=== PATIENT | female | born 1995 | race Caucasian/White ===

== ENCOUNTER 2017-02-12 17:26 | Emergency (ER) | payer OTHER ==
[~2017-02-12] VITALS: Ht 157.5 cm; Wt 77.0 kg
[2017-02-12 17:27] VITALS: BP 162/95; PULSE 94; RESP 20; TEMP 99.4; O2SAT 100
[2017-02-12] MEDS ORDERED: SODIUM CHLOR 0.9% 1000 ML INJ 1,000 ML IV SCH (18:01)
[2017-02-12 18:08] VITALS: RESP 18; O2SAT 99
[2017-02-12] MEDS ORDERED: ONDANSETRON HCL 4 MG/2 ML VIAL IVP ONE (18:15)
[2017-02-12] MEDS ORDERED: SODIUM CHLORIDE 0.9% FLUSH 10 ML FLUSH IV FLUSH PRN (18:15)
[2017-02-12 18:39] LABS: AUTOMATED NEUTROPHIL # 9.3 TH/MM3 (1.8-7.7); BASOPHIL # 0.1 TH/MM3 (0-0.2); BASOPHIL % 0.5 % (0.0-2.0); EOSINOPHIL # 0.1 TH/MM3 (0-0.4); EOSINOPHIL % 0.8 % (0.0-4.0); HEMATOCRIT 41.9 % (35.0-46.0); HEMO FLAGS DIFF FINAL; LYMPH % 25.2 % (9.0-44.0); LYMPHOCYTE # 3.5 TH/MM3 (1.0-4.8); MEAN CELL VOLUME 82.8 FL (80.0-100.0); MEAN CORPUSCULAR HEMOGLOBIN 27.7 PG (27.0-34.0); MEAN CORPUSCULAR HGB CONC 33.4 % (32.0-36.0); MONO % 6.5 % (0.0-8.0); PLATELET COUNT 272 TH/MM3 (150-450); RED BLOOD COUNT 5.06 MIL/MM3 (4.00-5.30); RED CELL DISTRIBUTION WIDTH 13.7 % (11.6-17.2); WHITE BLOOD COUNT 13.9 TH/MM3 (4.0-11.0)
[2017-02-12 18:57] VITALS: BP 136/80; PULSE 82; RESP 18; O2SAT 100
[2017-02-12 19:01] LABS: ANION GAP 8 MEQ/L (5-15); AST (GOT) 36 U/L (15-37); BICARBONATE 27.9 MEQ/L (21.0-32.0); BLOOD UREA NITROGEN 13 MG/DL (7-18); CHLORIDE 102 MEQ/L (98-107); GLOMERULAR FILTRATION RATE 81 ML/MIN (>89); POTASSIUM 3.6 MEQ/L (3.5-5.1); SODIUM (NA) 138 MEQ/L (136-145)
[2017-02-12 19:05] LABS: ALKALINE PHOSPHATASE 73 U/L (45-117); ALT (GPT) 52 U/L (10-53); TOTAL BILIRUBIN ADULT 0.4 MG/DL (0.2-1.0)
--- NOTE | 2017-02-12 19:05 | PD ---
HPI Chief Complaint: Abdominal Pain Time Seen by Provider: 18:00 Travel History International Travel<30 days: No Contact w/Intl Traveler<30days: No Traveled to known affect area: No History of Present Illness HPI 21 year old female presents to the ED for evaluation on one weeks history abdominal bloat, small volume stools. The patient endorses mild nausea. She states that she has had a low appetite 2/2 bloating. States that she drinks "a lot" of water and walks 2 miles at lunch daily. She denies vomiting, pencil thin stools, melena, hematochezia. States her last bowel movement was today, well-formed, "small amount." She endorses passing gas. LMP 01/28. Patient states that she stopped taking OC last month. She took a stool softener before todays BM with no improvement of her symptoms. She denies opioid use. PFSH Past Medical History Asthma: Yes Diabetes: No Tetanus Vaccination: > 5 Years Influenza Vaccination: No ?: Unknown LMP: JANUARY 28 NO LONGER TAKING CONTOLL Past Surgical History Surgical History: No Previous Surgery Social History Alcohol Use: Yes (OCCAS) Tobacco Use: No Substance Use: No Allergies-Medications (Allergen,Severity, Reaction): Coded Allergies: Augmentin (Verified Allergy, Mild, NAUSEA, 02/12/17) Reported Meds & Prescriptions Reported Meds & Active Scripts Active Magnesium Citrate Liq (Magnesium Citrate) 300 Ml Liq 300 Ml PO ONCE Physical Exam Narrative GENERAL: Well-nourished, well-developed nontoxic appearing white female in no acute distress. SKIN: Focused skin assessment warm/dry. HEAD: Normocephalic. EYES: No scleral icterus. No injection or drainage. NECK: Supple, trachea midline. No JVD or lymphadenopathy. CARDIOVASCULAR: Regular rate and rhythm without murmurs, gallops, or rubs. RESPIRATORY: Breath sounds clear and equal bilaterally. No accessory muscle use. GASTROINTESTINAL: Abdomen soft, non-tender, nondistended. No pubic tenderness. No hepatosplenomegaly. Active bowel sounds. MUSCULOSKELETAL: No cyanosis, or edema. Patient is ambulatory and moves the extremities spontaneously. BACK: Nontender without obvious deformity. No CVA tenderness. Data Data Last Documented VS Vital Signs Date Time Temp Pulse Resp B/P Pulse Ox O2 Delivery O2 Flow Rate FiO2 02/12/17 18:57 82 18 136/80 100 Room Air 02/12/17 17:27 99.4 Orders Complete Blood Count With Diff (02/12/17 18:01) Comprehensive Metabolic Panel (02/12/17 18:01) Urinalysis - C+S If Indicated (02/12/17 18:01) Iv Access Insert/Monitor (02/12/17 18:01) Ecg Monitoring (02/12/17 18:) Oximetry (02/12/17 18:01) Ondansetron Inj (Zofran Inj) (02/12/17 18:15) Sodium Chlor 0.9% 1000 Ml Inj (Ns 1000 M (02/12/17 18:01) Sodium Chloride 0.9% Flush (Ns Flush) (02/12/17 18:15) Ed Urine Pregnancytest Poc (02/12/17 18:01) Abdomen, Upright Only (02/12/17 19:13) Labs Laboratory Tests Test 02/12/17 02/12/17 18:05 19:56 White Blood Count 13.9 TH/MM3 Red Blood Count 5.06 MIL/MM3 Hemoglobin 14.0 GM/DL Hematocrit 41.9 % Mean Corpuscular Volume 82.8 FL Mean Corpuscular Hemoglobin 27.7 PG Mean Corpuscular Hemoglobin 33.4 % Concent Red Cell Distribution Width 13.7 % Platelet Count 272 TH/MM3 Mean Platelet Volume 8.6 FL Neutrophils (%) (Auto) 67.0 % Lymphocytes (%) (Auto) 25.2 % Monocytes (%) (Auto) 6.5 % Eosinophils (%) (Auto) 0.8 % Basophils (%) (Auto) 0.5 % Neutrophils # (Auto) 9.3 TH/MM3 Lymphocytes # (Auto) 3.5 TH/MM3 Monocytes # (Auto) 0.9 TH/MM3 Eosinophils # (Auto) 0.1 TH/MM3 Basophils # (Auto) 0.1 TH/MM3 CBC Comment DIFF FINAL Differential Comment Sodium Level 138 MEQ/L Potassium Level 3.6 MEQ/L Chloride Level 102 MEQ/L Carbon Dioxide Level 27.9 MEQ/L Anion Gap 8 MEQ/L Blood Urea Nitrogen 13 MG/DL Creatinine 0.87 MG/DL Estimat Glomerular Filtration 81 ML/MIN Rate Random Glucose 87 MG/DL Calcium Level 9.0 MG/DL Total Bilirubin 0.4 MG/DL Aspartate Amino Transf 36 U/L (AST/SGOT) Alanine Aminotransferase 52 U/L (ALT/SGPT) Alkaline Phosphatase 73 U/L Total Protein 7.6 GM/DL Albumin 3.9 GM/DL Urine Color YELLOW Urine Turbidity CLEAR Urine pH 5.5 Urine Specific [place] 1.023 Urine Protein NEG mg/dL Urine Glucose (UA) NEG mg/dL Urine Ketones NEG mg/dL Urine Occult Blood SMALL Urine Nitrite NEG Urine Bilirubin NEG Urine Urobilinogen LESS THAN 2.0 MG/DL Urine Leukocyte Esterase NEG Urine RBC 1 /hpf Urine WBC LESS THAN 1 /hpf Urine Squamous Epithelial 1 /hpf Cells Urine Mucus FEW /lpf Microscopic Urinalysis Comment CULT NOT INDICATED MDM Medical Decision Making Medical Screen Exam Complete: Yes Emergency Medical Condition: Yes Differential Diagnosis versus constipation versus UTI versus ileus versus bowel obstruction versus other Narrative Course 21 year old female presents to the ED for evaluation on one weeks history abdominal bloat, small volume stools. The patient endorses mild nausea. She states that she has had a low appetite 2/2 bloating. States that she drinks "a lot" of water and walks 2 miles at lunch daily. She denies vomiting, pencil thin stools, melena, hematochezia. States her last bowel movement was today, well-formed, "small amount." Endorses passing gas. LMP 01/28. Patient states that she stopped taking OC last month. She took a stool softener before today' s BM with no improvement of her symptoms. She denies opioid use. Vitals reviewed. Physical exam reveals a nontoxic appearing obese white female in no acute distress. Abdominal exam is reassuring. Patient was placed on continuous monitoring and IV was established. She was administered 1 L normal saline bolus and 4 mg Zofran. CBC: unremarkable. CMP: unremarkable UA: No culture indicated Urine test: Negative. Abdominal x-ray: Normal for patient of this age per radiology review. I discussed the results of the workup with the patient. She was particularly interested in her urine result. I prescribed a dose of mag citrate. I warned the patient that this treatment can work rather quickly. She is instructed take medication as prescribed, follow up with primary care provider, return for worsening of symptoms. She indicated understanding of the instructions and is agreeable with the care plan. She is stable and discharged home. I discussed the results of the workup with the patient. I suspect this is constipation. The patient is instructed to increase her fiber intake, fluid intake and activity level. She was provided a prescription for a single dose of Mag citrate, take as directed, follow up with the PCP. She indicated understanding of the instructions and is amenable to the care plan. She is stable and discharged home. Diagnosis Primary Impression: Constipation Qualified Code: K59.00 - Constipation, unspecified constipation type Additional Impression: Bloating Referrals: Primary Care Physician Patient Instructions: Constipation (ED), General Instructions Additional Instructions: Hydrate. Stay active. Increase your fiber intake to 28 grams daily. Take mag citrate as directed. Follow up with the primary care provider. Return to the ED for any urgent or emergent medical condition. Med/Other Pt SpecificInfo: Prescription(s) given Scripts Magnesium Citrate Liq 300 Ml Seq929 Ml PO ONCE #1 BOTTLE Ref 0 Prov:Mert Aleman MD 02/12/17 Disposition: 01 DISCHARGE HOME Condition: Stable Darlin Garcia February 12, 2017 19:05
[2017-02-12] MEDS ORDERED: MAGNSOL2 PO (19:50)
--- NOTE | 2017-02-12 20:29 | RADRPT ---
EXAM DATE/TIME: 02/12/2017 19:59 [facility] COMPARISON: No previous studies available for comparison. INDICATIONS : Constipation MEDICAL HISTORY : None. SURGICAL HISTORY : None. ENCOUNTER: Initial ACUITY: 1 week PAIN SCORE: 4/10 LOCATION: Bilateral abdomen FINDINGS: A single erect view of the abdomen demonstrates the lower lungs to be clear. No evidence of free int raperitoneal gas. The visualized bowel loops are unremarkable. CONCLUSION: Normal examination for a patient of this age. Mario Cutler MD on February 12, 2017 at 20:27 Board Certified Radiologist. This report was verified electronically.
[2017-02-12 20:33] LABS: BLOOD, URINE SMALL (NEG); GLUCOSE,URINE NEG (NEG); KETONE, URINE NEG (NEG); MUCUS URINE FEW /lpf (OCC); NITRITE,URINE NEG (NEG); PH, URINE 5.5 (5.0-8.5); SQUAMOUS EPITHELIAL CELL URINE 1 /hpf (0-5); URINE COLOR YELLOW (YELLW/STRAW)
[2017-02-12 20:34] LABS: COMMENT (UR) CULT NOT INDICATED; CULTURE IF INDICATED CULT NOT INDICATED
== END 2017-02-12 21:10 | disposition home or self-care (01) ==
LOC: NEPD 17:26
DX: K59.00 Constipation, unspecified (principal)
CPT/HCPCS: 74000; 80053; 81001; 84703; 85025; 96374; 99284; J2405; J7030

== ENCOUNTER 2017-03-14 21:24 | Emergency (ER) | payer OTHER ==
[~2017-03-14] VITALS: Ht 157.5 cm; Wt 82.0 kg
[~2017-03-14 21:24] MED LIST: MAGNSOL2 PO
[2017-03-14 21:25] VITALS: BP 170/61; PULSE 63; RESP 16; TEMP 98.9; O2SAT 100
[2017-03-14] MEDS ORDERED: SODIUM CHLOR 0.9% 1000 ML INJ 1,000 ML IV SCH (21:57)
[2017-03-14] MEDS ORDERED: MORPHINE SULFATE 4 MG/ML INJ IV PUSH ONE (22:00)
[2017-03-14] MEDS ORDERED: ONDANSETRON HCL 4 MG/2 ML VIAL IVP ONE (22:00)
[2017-03-14] MEDS ORDERED: SODIUM CHLORIDE 0.9% FLUSH 10 ML FLUSH IV FLUSH PRN (22:00)
[2017-03-14] MEDS ORDERED: CLON1 PO (22:30)
[2017-03-14 22:37] LABS: AUTOMATED NEUTROPHIL # 8.5 TH/MM3 (1.8-7.7); BASOPHIL # 0.1 TH/MM3 (0-0.2); BASOPHIL % 0.5 % (0.0-2.0); EOSINOPHIL # 0.1 TH/MM3 (0-0.4); EOSINOPHIL % 0.8 % (0.0-4.0); HEMATOCRIT 40.8 % (35.0-46.0); HEMO FLAGS DIFF FINAL; LYMPH % 29.4 % (9.0-44.0); MEAN CORPUSCULAR HGB CONC 33.7 % (32.0-36.0); MONO % 6.5 % (0.0-8.0); NEUT % 62.8 % (16.0-70.0); PLATELET COUNT 267 TH/MM3 (150-450); RED BLOOD COUNT 4.92 MIL/MM3 (4.00-5.30); RED CELL DISTRIBUTION WIDTH 13.6 % (11.6-17.2); WHITE BLOOD COUNT 13.6 TH/MM3 (4.0-11.0)
[2017-03-14 22:42] LABS: BLOOD, URINE SMALL (NEG); COMMENT (UR) CULT NOT INDICATED; CULTURE IF INDICATED CULT NOT INDICATED; GLUCOSE,URINE NEG (NEG); KETONE, URINE 10 mg/dL (NEG); MUCUS URINE FEW /lpf (OCC); NITRITE,URINE NEG (NEG); PH, URINE 5.5 (5.0-8.5); SQUAMOUS EPITHELIAL CELL URINE 3 /hpf (0-5); URINE COLOR YELLOW (YELLW/STRAW)
[2017-03-14 22:50] LABS: APTT (PATIENT) 30.3 SEC (24.3-30.1); PROTHROMBIN TIME - PATIENT 10.7 SEC (9.8-11.6)
[2017-03-14 23:03] LABS: BICARBONATE 29.3 MEQ/L (21.0-32.0); POTASSIUM 3.6 MEQ/L (3.5-5.1)
[2017-03-14 23:05] LABS: INDIRECT BILIRUBIN 0.3 MG/DL (0.0-0.8); TOTAL BILIRUBIN ADULT 0.4 MG/DL (0.2-1.0)
[2017-03-14] MEDS ORDERED: IOHEXOL 350 MG/ML 10 ML VIAL (for RAD DIAG) IV ONE (23:19)
--- NOTE | 2017-03-14 23:20 | RADRPT ---
EXAM DATE/TIME: 03/14/2017 22:47 [facility] COMPARISON: No previous studies available for comparison. INDICATIONS : Right lower quadrant pain. IV CONTRAST: 97 cc Omnipaque 350 (iohexol) IV ORAL CONTRAST: No oral contrast ingested. RADIATION DOSE: 11.71 CTDIvol (mGy) MEDICAL HISTORY : Asthma. SURGICAL HISTORY : None. ENCOUNTER: Initial ACUITY: 1 day PAIN SCALE: 7/10 LOCATION: Right lower quadrant TECHNIQUE: Volumetric scanning of the abdomen and pelvis was performed. Using automated exposure control and ad justment of the mA and/or kV according to patient size, radiation dose was kept as low as reasonably achievable to obtain optimal diagnostic quality images. FINDINGS: LOWER LUNGS: The visualized lower lungs are clear. LIVER: Homogeneous density without lesion. There is no dilation of the biliary tree. No calcified gallston es. SPLEEN: Normal size without lesion. PANCREAS: Within normal limits. KIDNEYS: Normal in size and shape. There is no mass, stone or hydronephrosis. ADRENAL GLANDS: Within normal limits. VASCULAR: There is no aortic aneurysm. BOWEL/MESENTERY: The stomach, small bowel, and colon demonstrate no acute abnormality. There is no free intraperitone al air or fluid. The appendix is normal ABDOMINAL WALL: Within normal limits. RETROPERITONEUM: There is no lymphadenopathy. BLADDER: No wall thickening or mass. REPRODUCTIVE: Within normal limits. Free fluid in the pelvis within normal limits INGUINAL: There is no lymphadenopathy or hernia. MUSCULOSKELETAL: Within normal limits for patient age. CONCLUSION: Normal examination. Fredi Escalante MD on March 14, 2017 at 23:17 Board Certified Radiologist. This report was verified electronically.
[2017-03-14] MEDS ORDERED: ONDANSETRON HCL 4 MG/2 ML VIAL IV PUSH ONE (23:45)
[2017-03-15] MEDS ORDERED: METR-1 PO (00:27)
[2017-03-15] MEDS ORDERED: ZOFR4TAB3 SL (00:27)
--- NOTE | 2017-03-15 00:27 | PD ---
HPI Chief Complaint: Abdominal Pain Time Seen by Provider: 21:50 Travel History International Travel<30 days: No Contact w/Intl Traveler<30days: No Traveled to known affect area: No History of Present Illness HPI Patient is a 21-year-old female who comes in from urgent care due to abdominal pain with nausea and vomiting. She says she has had nausea and vomiting for the past 2 weeks. She says that she developed pain in her abdomen the past 3 or 4 days. She denies fever or chills. She says she has been having issues with constipation. She did take magnesium citrate and had a normal bowel movement afterwards. She denies any dysuria. She says she has had some vaginal discharge. [facility] Past Medical History Asthma: Yes Anxiety: Yes Diabetes: No ?: Not Past Surgical History Other Surgery: Yes (wisdom teeth removed) Social History Alcohol Use: Yes (OCCAS) Tobacco Use: No Substance Use: No Allergies-Medications (Allergen,Severity, Reaction): Coded Allergies: Augmentin (Verified Allergy, Mild, NAUSEA, 03/14/17) Reported Meds & Prescriptions Reported Meds & Active Scripts Active Reported Klonopin (Clonazepam) 1 Mg Tab 1 Mg PO TID Review of Systems Except as stated in HPI: all other systems reviewed are Neg General / Constitutional: No: Fever, Chills HENT: No: Headaches, Lightheadedness Cardiovascular: No: Chest Pain or Discomfort Respiratory: No: Shortness of Breath Gastrointestinal: Positive: Nausea, Vomiting, Abdominal Pain, Constipation Genitourinary: Positive: Discharge, No: Dysuria Skin: No Rash, No Change in Pigmentation Neurologic: No: Weakness, Dizziness Physical Exam Narrative GENERAL: Awake and alert, in no acute distress. SKIN: Focused skin assessment warm/dry. HEAD: Atraumatic. Normocephalic. EYES: Pupils equal and round. No scleral icterus. ENT: Mucous membranes pink and moist. NECK: Trachea midline. No JVD. CARDIOVASCULAR: Regular rate and rhythm. No murmur appreciated. RESPIRATORY: No accessory muscle use. Clear to auscultation. Breath sounds equal bilaterally. GASTROINTESTINAL: Abdomen soft, nondistended. Tender to palpation of the right side of the abdomen. No rebound or guarding. : Performed in the presence of female nurse. Clear discharge from the os. No cervical lesions. No CMT. Minimal right sided adnexal tenderness. MUSCULOSKELETAL: No obvious deformities. No clubbing. No cyanosis. No edema. NEUROLOGICAL: Awake and alert. No obvious cranial nerve deficits. Motor grossly within normal limits. Normal speech. PSYCHIATRIC: Appropriate mood and affect; insight and judgment normal. Data Data Last Documented VS Vital Signs Date Time Temp Pulse Resp B/P Pulse Ox O2 Delivery O2 Flow Rate FiO2 03/14/17 21:25 98.9 63 16 170/61 100 Orders Basic Metabolic Panel (Bmp) (03/14/17 21:57) Complete Blood Count With Diff (03/14/17 21:57) Lipase (03/14/17 21:57) Lactic Acid (03/14/17 21:57) Prothrombin Time / Inr (Pt) (03/14/17 21:57) Act Partial Throm Time (Ptt) (03/14/17 21:57) Urinalysis - C+S If Indicated (03/14/17 21:57) Ua Includes Microscopic (03/14/17 21:57) Ct Abd/Pel W Iv Contrast(Rout) (03/14/17 21:57) Iv Access Insert/Monitor (03/14/17 21:57) Ecg Monitoring (03/14/17 21:57) Oximetry (03/14/17 21:57) Morphine Inj (Morphine Inj) (03/14/17 22:00) Ondansetron Inj (Zofran Inj) (03/14/17 22:00) Sodium Chlor 0.9% 1000 Ml Inj (Ns 1000 M (03/14/17 21:57) Sodium Chloride 0.9% Flush (Ns Flush) (03/14/17 22:00) Ed Urine Pregnancytest Poc (03/14/17 21:57) Hepatic Functional Panel (03/14/17 21:57) Iohexol 350 Inj (Omnipaque 350 Inj) (03/14/17 23:19) Ondansetron Inj (Zofran Inj) (03/14/17 23:45) Wet Prep Profile (03/14/17 23:58) Gc And Chlamydia Pcr (03/14/17 23:58) Labs Laboratory Tests Test 03/14/17 03/14/17 22:10 22:20 Urine Color YELLOW Urine Turbidity CLEAR Urine pH 5.5 Urine Specific [place] 1.022 Urine Protein TRACE mg/dL Urine Glucose (UA) NEG mg/dL Urine Ketones 10 mg/dL Urine Occult Blood SMALL Urine Nitrite NEG Urine Bilirubin NEG Urine Urobilinogen LESS THAN 2.0 MG/DL Urine Leukocyte Esterase NEG Urine RBC 4 /hpf Urine WBC 2 /hpf Urine Squamous Epithelial 3 /hpf Cells Urine Mucus FEW /lpf Microscopic Urinalysis Comment CULT NOT INDICATED White Blood Count 13.6 TH/MM3 Red Blood Count 4.92 MIL/MM3 Hemoglobin 13.8 GM/DL Hematocrit 40.8 % Mean Corpuscular Volume 83.0 FL Mean Corpuscular Hemoglobin 28.0 PG Mean Corpuscular Hemoglobin 33.7 % Concent Red Cell Distribution Width 13.6 % Platelet Count 267 TH/MM3 Mean Platelet Volume 8.4 FL Neutrophils (%) (Auto) 62.8 % Lymphocytes (%) (Auto) 29.4 % Monocytes (%) (Auto) 6.5 % Eosinophils (%) (Auto) 0.8 % Basophils (%) (Auto) 0.5 % Neutrophils # (Auto) 8.5 TH/MM3 Lymphocytes # (Auto) 4.0 TH/MM3 Monocytes # (Auto) 0.9 TH/MM3 Eosinophils # (Auto) 0.1 TH/MM3 Basophils # (Auto) 0.1 TH/MM3 CBC Comment DIFF FINAL Differential Comment Prothrombin Time 10.7 SEC Prothromb Time International 1.0 RATIO Ratio Activated Partial 30.3 SEC Thromboplast Time Sodium Level 138 MEQ/L Potassium Level 3.6 MEQ/L Chloride Level 104 MEQ/L Carbon Dioxide Level 29.3 MEQ/L Anion Gap 5 MEQ/L Blood Urea Nitrogen 9 MG/DL Creatinine 0.90 MG/DL Estimat Glomerular Filtration 78 ML/MIN Rate Random Glucose 86 MG/DL Lactic Acid Level 1.0 mmol/L Calcium Level 8.7 MG/DL Total Bilirubin 0.4 MG/DL Direct Bilirubin 0.1 MG/DL Indirect Bilirubin 0.3 MG/DL Aspartate Amino Transf 51 U/L (AST/SGOT) Alanine Aminotransferase 78 U/L (ALT/SGPT) Alkaline Phosphatase 66 U/L Total Protein 7.5 GM/DL Albumin 3.8 GM/DL Lipase 121 U/L [facility] Medical Decision Making Medical Screen Exam Complete: Yes Emergency Medical Condition: Yes Medical Record Reviewed: Yes Differential Diagnosis Appendicitis versus cholecystitis versus pancreatitis versus gastroenteritis versus versus UTI versus pyelonephritis Narrative Course Patient is a 21-year-old female who comes in complaining of abdominal pain with nausea and vomiting. Exam shows tenderness to the right side of the abdomen. IV established, labs sent. Labs showed elevated white blood cell count of 13.6. Other labs are within normal limits. Except for slight bump in AST and ALT. CT of the abdomen and pelvis performed shows no acute abnormalities. Last 24 hours Impressions Abdomen/Pelvis CT 03/14/17 [id number] Signed Impressions: Service Date/Time: Tuesday, March 14, 2017 22:47 - CONCLUSION: Normal examination. Fredi Escalante MD Wet prep sent shows clue cells. Will be treated with Flagyl. Will be discharged with prescription for Flagyl and Zofran. Patient advised to follow- up with her primary doctor as well as gastroenterology. Advised to drink plenty of fluids and eat bland foods. Advised to return to the ED as needed for any worsening symptoms. Diagnosis Primary Impression: Nausea and vomiting Qualified Code: R11.2 - Non-intractable vomiting with nausea, unspecified vomiting type Additional Impression: Bacterial vaginosis Patient Instructions: Acute Nausea and Vomiting (ED), Bacterial Vaginosis (ED) , General Instructions Additional Instructions: Take Zofran as needed for nausea. Take all of your antibiotic. Do not drink alcohol while taking the antibiotic as you will become very sick. Follow up with a primary care physician and Gastroenterology. Return to the ED as needed for any worsening symptoms. Scripts Metronidazole (Flagyl)500 Mg Bxt515 Mg PO BID 7 Days Ref 0 Prov:Fadia Hollis MD 03/15/17 Ondansetron Odt (Zofran Odt)4 Mg Tab4 Mg SL Q6HR PRN (Nausea/Vomiting) #12 TAB Ref 0 Prov:Fadia Hollis MD 03/15/17 Disposition: DISCHARGE HOME Condition: Stable Fadia Hollis MD Mar 15, 2017 00:27
[2017-03-15 01:54] LABS: CHLAMYDIA PCR DETECTED (NOT DETECT); NEISSERIA PCR NOT DETECTED (NOT DETECT)
[2017-03-15] MEDS ORDERED: ALBUAER3 INH (20:50)
[2017-03-15] MEDS ORDERED: VALT1TAB PO (21:02)
[2017-03-15] MEDS ORDERED: PRED1TAB72 SL (21:02)
== END 2017-03-15 01:15 | disposition home or self-care (01) ==
LOC: NEPD 21:24
DX: R11.2 Nausea with vomiting, unspecified (principal); N76.0 Acute vaginitis
CPT/HCPCS: 74177; 80048; 80076; 81001; 83605; 83690; 84703; 85025; 85610; 85730; 87210; 87491; 87591; 96361; 96374; 96375; 96376; 99285; J2270; J2405; J7030; Q9967

== ENCOUNTER 2017-03-15 20:33 | Emergency (ER) | payer OTHER ==
[~2017-03-15] VITALS: Ht 162.6 cm; Wt 82.6 kg
[~2017-03-15 20:33] MED LIST changes: +CLON1 PO; -MAGNSOL2 PO; +METR-1 PO; +ZOFR4TAB3 SL
[2017-03-15 20:38] VITALS: BP 180/92; PULSE 108; RESP 20; O2SAT 100
[2017-03-15 20:43] VITALS: BP 143/90; PULSE 85; RESP 18; TEMP 98.6; O2SAT 100
[2017-03-15] MEDS ORDERED: ALBUAER3 INH (20:50)
[2017-03-15 20:56] VITALS: RESP 18; O2SAT 100
[2017-03-15] MEDS ORDERED: valACYclovir HCL 500 MG TAB PO ONE (21:00)
[2017-03-15] MEDS ORDERED: SODIUM CHLOR 0.9% 1000 ML INJ 1,000 ML IV SCH (21:00)
[2017-03-15] MEDS ORDERED: methylPREDNISolone SOD SUCC 40 MG/1 ML VIAL IV PUSH ONE (21:00)
[2017-03-15] MEDS ORDERED: VALT1TAB PO (21:02)
[2017-03-15] MEDS ORDERED: PRED1TAB72 SL (21:02)
[2017-03-15 21:15] LABS: AUTOMATED NEUTROPHIL # 7.5 TH/MM3 (1.8-7.7); BASOPHIL # 0.1 TH/MM3 (0-0.2); BASOPHIL % 0.6 % (0.0-2.0); EOSINOPHIL # 0.2 TH/MM3 (0-0.4); EOSINOPHIL % 1.2 % (0.0-4.0); HEMO FLAGS DIFF FINAL; LYMPH % 30.9 % (9.0-44.0); LYMPHOCYTE # 3.9 TH/MM3 (1.0-4.8); MEAN CORPUSCULAR HEMOGLOBIN 27.5 PG (27.0-34.0); MEAN CORPUSCULAR HGB CONC 32.8 % (32.0-36.0); NEUT % 59.3 % (16.0-70.0); PLATELET COUNT 313 TH/MM3 (150-450); RED BLOOD COUNT 5.24 MIL/MM3 (4.00-5.30); RED CELL DISTRIBUTION WIDTH 13.7 % (11.6-17.2); WHITE BLOOD COUNT 12.7 TH/MM3 (4.0-11.0)
--- NOTE | 2017-03-15 21:29 | RADRPT ---
EXAM DATE/TIME: 03/15/2017 21:12 [facility] COMPARISON: No previous studies available for comparison. INDICATIONS : Right sided facial numbness. RADIATION DOSE: 56.77 CTDIvol (mGy) MEDICAL HISTORY : None SURGICAL HISTORY : None. ENCOUNTER: Initial ACUITY: 2 days PAIN SCALE: 0/10 LOCATION: cranial TECHNIQUE: Multiple contiguous axial images were obtained of the head. Using automated exposure control and adj ustment of the mA and/or kV according to patient size, radiation dose was kept as low as reasonably a chievable to obtain optimal diagnostic quality images. FINDINGS: CEREBRUM: The ventricles are normal for age. No evidence of midline shift, mass lesion, hemorrhage or acute in farction. No extra-axial fluid collections are seen. POSTERIOR FOSSA: The cerebellum and brainstem are intact. The 4th ventricle is midline. The cerebellopontine angle i s unremarkable. EXTRACRANIAL: The visualized portion of the orbits is intact. SKULL: The calvaria is intact. No evidence of skull fracture. CONCLUSION: Normal examination. Alexx Louie MD on March 15, 2017 at 21:26 Board Certified Radiologist. This report was verified electronically.
[2017-03-15 21:31] LABS: PROTHROMBIN TIME - PATIENT 10.6 SEC (9.8-11.6)
--- NOTE | 2017-03-15 21:32 | PD ---
HPI Chief Complaint: Neuro Symptoms/ Deficits Time Seen by Provider: 20:50 Travel History International Travel<30 days: No Contact w/Intl Traveler<30days: No Traveled to known affect area: No History of Present Illness HPI The patient is a 21 year old female who presents to the [facility] emergency department with a history of yesterday noticing in the morning when she brushed her teeth that she had numbness to her tongue and then later in the day she noticed a lack of taste with eating. The patient reports that today while eating dinner at approximate 7:30 PM she then noticed that she is having difficulty chewing and difficulty smiling on the right side of her face. She asked her boyfriend if he noticed any problems when she tried to smile and he did notice some asymmetry, therefore the patient came into the emergency department for evaluation and treatment. The patient was brought back immediately for evaluation. The patient has no numbness or tingling to her arms or legs. She denies having any weakness of arms or legs. She denies having any headache. The patient denies having any neck pain. The patient does incidentally report that she was seen in the emergency department yesterday evening after being referred from an urgent care center for possible appendicitis. The patient reports to me that she's had abdominal pain is waxed and waned in severity for the last month although over the last 3-4 days it has become much worse. The pain is across the lower aspect of the abdomen. She reports that she's had nausea and vomiting with any attempts at eating for the last 2 weeks. She reports that previously she was also constipated, however now she has begun to move her bowels more regularly. She had a bowel movement earlier today. The patient underwent evaluation including a CT scan of the abdomen and pelvis that was unremarkable. The patient was diagnosed with bacterial vaginosis and was given a prescription for Flagyl and Zofran. The patient denies any recent fevers, rash, eye pain, cough, congestion, neck pain, chest pain, shortness of breath, abdominal pain, vomiting, diarrhea, urinary symptoms, or other neurologic symptoms. LMP: At the end of February. [facility] [place] Past Medical History Narrative Medical The patient's past medical history is significant for asthma, anxiety disorder. Asthma: Yes Anxiety: Yes Diabetes: No Diminished Hearing: No Tetanus Vaccination: Unknown Influenza Vaccination: No ?: Not LMP: 6/1/17 Past Surgical History Narrative Surgical The patient's past surgical history is significant for wisdom teeth extraction. Other Surgery: Yes (wisdom teeth removed) Social History Alcohol Use: Yes (OCCAS) Tobacco Use: No Substance Use: No Allergies-Medications (Allergen,Severity, Reaction): Coded Allergies: Augmentin (Verified Allergy, Mild, NAUSEA, 03/15/17) Reported Meds & Prescriptions Reported Meds & Active Scripts Active Valtrex (Valacyclovir HCl) 1 Gm Tab 1,000 Mg PO TID Prednisolone Odt 10 Mg Tab 10 Mg SL DIRECTED 10 Days Take 6 tablets once a day for 5 days then, On day 6 take 5 tablets once a day, then day 7, 4 tablets once a day, then day 8, take 3 tablets once a day, then day 9, take 2 tablets once a day, on day 10 take 1 tablet by mouth for the last time. Flagyl (Metronidazole) 500 Mg Tab 500 Mg PO BID 7 Days Zofran Odt (Ondansetron Odt) 4 Mg Tab 4 Mg SL Q6HR PRN Reported Proair Hfa 8.5 GM Inh (Albuterol Sulfate) 90 Mcg/Act Aer 2 Puff INH Q4-6H PRN 108 mcg/actuation Klonopin (Clonazepam) 1 Mg Tab 1 Mg PO TID Review of Systems Except as stated in HPI: all other systems reviewed are Neg General / Constitutional: No: Fever Eyes: No: Visual changes HENT: No: Headaches Cardiovascular: No: Chest Pain or Discomfort Respiratory: No: Shortness of Breath Gastrointestinal: Positive: Nausea, Vomiting, Abdominal Pain, Constipation, Changes in Bowel Habits, Loss of Appetite, No: Diarrhea, Hematemesis, Hematochezia, Indigestion Genitourinary: No: Urgency, Frequency, Dysuria Musculoskeletal: No: Pain Skin: No Rash Neurologic: Positive: Focal Abnormalities (right-sided facial droop), Sensory Disturbance, No: Weakness, Coordination Problem, Change in Mentation, Slurred Speech, Paresthesia Psychiatric: No: Depression Endocrine: No: Polydipsia Hematologic/Lymphatic: No: Easy Bruising Physical Exam Narrative General: The patient is a well-developed well-nourished female, anxious appearing on arrival, tearful. Head and Neck exam: Head is normocephalic atraumatic. Evidence of facial droop on the right side of the face. Eyes: EOMI, pupils are equal round and reactive to light. No conjunctival injection or drainage. Nose: Midline septum with pink mucous membranes Mouth: Dentition unremarkable. Moist mucus membranes. Posterior oropharynx is not erythematous. No tonsillar hypertrophy. Uvula midline. Airway patent. Neck: No palpable lymphadenopathy. No nuchal rigidity. No thyromegaly. Cardiovascular: Regular rate and rhythm without murmurs, gallops, or rubs. No pulse deficit to the extremities on simultaneous auscultation and palpation of her radial artery. Lungs: Clear to auscultation bilaterally. No wheezes, rhonchi, or rales. Abdomen: Soft, with reported discomfort on palpation of the suprapubic area and left lower quadrant of the abdomen. No other tenderness on palpation of the other quadrants of the abdomen. No guarding, rebound, or rigidity. Normal bowel sounds are audible. No tenderness on palpation of McBurney's point. Negative Velásquez's sign. Extremities: No clubbing, cyanosis, or edema. 2+ pulses in all 4 extremities. No calf tenderness on palpation. Back: No costovertebral angle tenderness to palpation. Neurologic Exam: Cranial nerves 2-12 were intact on exam, except in the right side of the face the patient has a right-sided facial nerve palsy. Strength is 5/5 in all 4 extremities. No sensory deficits noted. No dysdiadochokinesis. Good finger to nose and Heel to tovar bilaterally. The patient is able to follow commands and name various objects around the room. No aphasia. Skin Exam: No rash noted. Intact skin that is warm and dry. Data Data Last Documented VS Vital Signs Date Time Temp Pulse Resp B/P Pulse Ox O2 Delivery O2 Flow Rate FiO2 03/15/17 20:56 18 100 Room Air 03/15/17 20:43 98.6 85 143/90 Orders Electrocardiogram (03/15/17 20:51) Complete Blood Count With Diff (03/15/17 20:51) Comprehensive Metabolic Panel (03/15/17 20:51) Prothrombin Time / Inr (Pt) (03/15/17 20:51) Act Partial Throm Time (Ptt) (03/15/17 20:51) Lipase (03/15/17 20:51) Ct Brain W/O Iv Contrast(Rout) (03/15/17 20:51) Iv Access Insert/Monitor (03/15/17 20:51) Ecg Monitoring (03/15/17 20:51) Oximetry (03/15/17 20:51) Ed Urine Pregnancytest Poc (03/15/17 20:51) Sodium Chlor 0.9% 1000 Ml Inj (Ns 1000 M (03/15/17 21:00) Methylprednisolone So Succ Inj (Solumedr (03/15/17 21:00) Valacyclovir (Valtrex) (03/15/17 21:00) Labs Laboratory Tests Test 03/15/17 21:04 White Blood Count 12.7 TH/MM3 Red Blood Count 5.24 MIL/MM3 Hemoglobin 14.4 GM/DL Hematocrit 44.0 % Mean Corpuscular Volume 84.0 FL Mean Corpuscular Hemoglobin 27.5 PG Mean Corpuscular Hemoglobin 32.8 % Concent Red Cell Distribution Width 13.7 % Platelet Count 313 TH/MM3 Mean Platelet Volume 8.7 FL Neutrophils (%) (Auto) 59.3 % Lymphocytes (%) (Auto) 30.9 % Monocytes (%) (Auto) 8.0 % Eosinophils (%) (Auto) 1.2 % Basophils (%) (Auto) 0.6 % Neutrophils # (Auto) 7.5 TH/MM3 Lymphocytes # (Auto) 3.9 TH/MM3 Monocytes # (Auto) 1.0 TH/MM3 Eosinophils # (Auto) 0.2 TH/MM3 Basophils # (Auto) 0.1 TH/MM3 CBC Comment DIFF FINAL Differential Comment Prothrombin Time 10.6 SEC Prothromb Time International 1.0 RATIO Ratio Activated Partial 29.0 SEC Thromboplast Time Sodium Level 139 MEQ/L Potassium Level 3.9 MEQ/L Chloride Level 106 MEQ/L Carbon Dioxide Level 25.9 MEQ/L Anion Gap 7 MEQ/L Blood Urea Nitrogen 8 MG/DL Creatinine 0.97 MG/DL Estimat Glomerular Filtration 71 ML/MIN Rate Random Glucose 109 MG/DL Calcium Level 8.9 MG/DL Total Bilirubin 0.2 MG/DL Aspartate Amino Transf 53 U/L (AST/SGOT) Alanine Aminotransferase 89 U/L (ALT/SGPT) Alkaline Phosphatase 79 U/L Total Protein 7.6 GM/DL Albumin 3.5 GM/DL Lipase 157 U/L MDM Medical Decision Making Medical Screen Exam Complete: Yes Emergency Medical Condition: Yes Medical Record Reviewed: Yes Interpretation(s) Last Impressions Head CT 03/15/172050 Signed Impressions: Service Date/Time: Wednesday, March 15, 2017 21:12 - CONCLUSION: Normal examination. Alexx Louie MD Differential Diagnosis Shepherd's palsy, versus intracranial abnormality Narrative Course During the course of the patients emergency department visit, the patients history, examination, and differential diagnosis were reviewed with the patient. The patient had IV access obtained and blood work sent for analysis. The patient was placed on a donor technician with oximetry and blood pressure monitoring. A CT scan of the brain was ordered. The patient was placed on a donor technician with oximetry and blood pressure monitoring. An EKG was done on arrival. The patient's EKG shows a sinus rhythm with sinus arrhythmia heart rate of 81, no acute ST segment elevation or depression, T waves are inverted in V1 The patient was initially provided normal saline IV fluids at 100 and hour. The patient is suspected on exam to have a Shepherd's palsy. The patient was given Solu-Medrol 60 mg IV, Valtrex 1 g by mouth. The patients laboratory studies were reviewed and remarkable for white count of 12.7, hemoglobin 14.4, platelets 313 with a normal differential, CMP is remarkable for glucose of 109, AST 53, ALT 89 which could be related to a viral illness, lipase 157, PT PTT within normal limits. Radiology studies were reviewed and remarkable for a CT scan of the brain that shows no acute abnormality. he patient is instructed regarding the importance of following up with a primary care physician in the next 2 days for reexamination. The patient will be discharged home with a prednisone taper, Valtrex to be completed over the next 7 days. The patient is resting comfortably and feels better, is alert and in no distress. The patients results and examination findings were discussed with the patient. The repeat examination is unremarkable and benign. The history, exam, diagnostic testing, and current condition do not suggest any significant pathology to warrant further testing, continued ED treatment, admission, or surgical evaluation at this point. The vital signs have been stable. The patient does not have uncontrollable pain, intractable vomiting, or other significant symptoms. The patient's condition is stable and appropriate for discharge. The patient will pursue further outpatient evaluation with a primary care physician or other designated or consulting physician as indicated in the discharge instructions. The patient expressed understanding and was agreeable with this plan. Diagnosis Primary Impression: Shepherd's palsy Additional Impression: Elevated liver enzymes Referrals: Primary Care Physician 2 days Patient Instructions: Shepherd Palsy (ED), General Instructions Additional Instructions: Follow-up with her primary care physician for reexamination of her elevated liver enzymes. In the meantime, avoid alcohol and Tylenol based products. Med/Other Pt SpecificInfo: Prescription(s) given Scripts Valacyclovir (Valtrex)1 Gm Tab1,000 Mg PO TID #20 TAB Ref 0 Prov:Emily Robertson MD 03/15/17 Prednisolone Odt 10 Mg Tab10 Mg SL DIRECTED 10 Days Ref 0 Take 6 tablets once a day for 5 days then, On day 6 take 5 tablets once a day, then day 7, 4 tablets once a day, then day 8, take 3 tablets once a day, then day 9, take 2 tablets once a day, on day 10 take 1 tablet by mouth for the last time. Prov:Emily Robertson MD 03/15/17 Disposition: 01 DISCHARGE HOME Condition: Stable Emily Robertson MD Mar 15, 2017 21:32
[2017-03-15 21:33] LABS: ALT (GPT) 89 U/L (10-53); ANION GAP 7 MEQ/L (5-15); AST (GOT) 53 U/L (15-37); BICARBONATE 25.9 MEQ/L (21.0-32.0); BLOOD UREA NITROGEN 8 MG/DL (7-18); CHLORIDE 106 MEQ/L (98-107); GLOMERULAR FILTRATION RATE 71 ML/MIN (>89); POTASSIUM 3.9 MEQ/L (3.5-5.1); SODIUM (NA) 139 MEQ/L (136-145)
[2017-03-15 21:36] LABS: ALKALINE PHOSPHATASE 79 U/L (45-117); TOTAL BILIRUBIN ADULT 0.2 MG/DL (0.2-1.0)
--- NOTE | 2017-03-16 18:18 | EKG ---
Date Performed: 03/15/2017 Time Performed: 20:44:12 PTAGE: 21 years EKG: Sinus rhythm WITH SINUS ARRHYTHMIA NORMAL ECG NO PREVIOUS TRACING DOCTOR: Aydin Soares Interpretating Date/Time 03/16/2017 18:17:42
== END 2017-03-15 22:50 | disposition home or self-care (01) ==
LOC: NEPE 20:33
DX: R20.0 Anesthesia of skin (principal); G51.0 Bell's palsy; R74.8 Abnormal levels of other serum enzymes; R11.2 Nausea with vomiting, unspecified; I49.8 Other specified cardiac arrhythmias
CPT/HCPCS: 70450; 80053; 83690; 84703; 85025; 85610; 85730; 93005; 96361; 96374; 99285; J2920; J7030